=== PATIENT | male | born 1950 | race Caucasian/White ===

== ENCOUNTER 2017-03-14 20:30 | Emergency (ER) | payer OTHER ==
[2017-03-14 20:34] VITALS: BP 127/76; PULSE 77; TEMP 98.1; BMI 24.4
--- NOTE | 2017-03-14 21:14 | PDOC ---
History of Present Illness - General History Source: Patient Exam Limitations: No Limitations - History of Present Illness Initial Comments: 03/14/17 21:38 A portion of this note was documented by scribe services under my direction. I have reviewed the details of the note, within reason, and agree with the documentation. The case summary and management plan written by me. Assessment and plan: This is a 66-year-old male with foreign body under his ring and elevate his right right fifth finger. Foreign body was removed without difficulty after doing a digital block. <Alison Gilliam I - Last Filed: 03/14/17 21:39> - General History Source: Patient Exam Limitations: No Limitations - History of Present Illness Initial Comments: 03/14/17 21:30 The patient is a 66 year old male with a significant past medical history of colon cancer, who presents to the ED with a splinter in the right hand pinky. Patient states he was in his backyard when he hand scraped against the wooden fence. He denies any pain but witnessed a small wood piece inside the pinky. Patient is otherwise healthy and has no other complaints. Patient is right-hand dominant. Patient has not had a tetanus shot in over ten years. PAST MEDICAL HISTORY: Colon CA PAST SURGICAL HISTORY: no significant history FAMILY HISTORY: no pertinent history SOCIAL HISTORY: Pt lives with family and is employed. MEDICATIONS: reviewed ALLERGIES: As per nursing notes ROS General: No fevers or chills, no weakness, no weight loss HEENT: No change in vision. No sore throat,. No ear pain CardioVascular: No chest pain or shortness of breath Respiratory:No cough, or wheezing. Gastrointestinal: no nausea, vomiting, diarrhea or constipation, No rectal bleeding Genitourinary: No dysuria, hematuria, or frequency Musculoskeletal: No joint or muscle pain or swelling Neurologic: No headache, vertigo, dizziness or loss of consciousness Psychiatric: nor depression Skin: + wood splinter in the right hand pinky. Endocrine: no increased thirst or abnormal weight change Allergic: no skin or latex allergy All other systems reviewed and normal PE GENERAL: The patient is awake, alert, and fully oriented, in no acute distress. HEAD: Normal with no signs of trauma. EYES: Pupils equal, round and reactive to light, extraocular movements intact, sclera anicteric, conjunctiva clear. EXTREMITIES: Foreign body under the 5th digit of the right hand. Normal range of motion, no edema. NEUROLOGICAL: Normal speech, normal gait. PSYCH: Normal mood, normal affect. SKIN: Warm, Dry, normal turgor. 03/14/17 21:32 Procedure note: foreign body removal of the right fifth finger. finger was cleaned with alcohol and anesthetized with ring block no epinephrine. total of 5cc. Finger nail was incised with scissors the length of the splinter and splinter was removed without difficulty. Bacitracin and wrapped finger. <Wero Ba - Last Filed: 03/14/17 21:49> - General Chief Complaint: Foreign Body (FB) Stated Complaint: RIGHT 5TH FINGER SPLINTER Time Seen by Provider: 03/14/17 20:34 Past History - Past Medical History Cancer: Yes (COLON CA) - Psycho/Social/Smoking Cessation Hx Suicidal Ideation: No Smoking History: Current every day smoker Have you smoked in the past 12 months: Yes Number of Cigarettes Smoked Daily: 20 Information on smoking cessation initiated: Yes 'Breaking Loose' booklet given: 03/14/17 Hx Alcohol Use: (weekly) <Alison Gilliam I - Last Filed: 03/14/17 21:39> <Wero Ba - Last Filed: 03/14/17 21:49> - Past Medical History Allergies/Adverse Reactions: Allergies Allergy/AdvReac Type Severity Reaction Status Date / Time prednisone Allergy Verified 03/14/17 20:31 Home Medications: Ambulatory Orders NK [No Known Home Medication] 03/14/17 *Physical Exam - Vital Signs Last Vital Signs Temp Pulse Resp BP Pulse Ox 98.1 F 77 18 127/76 96 03/14/17 20:30 03/14/17 20:30 03/14/17 20:30 03/14/17 20:30 03/14/17 20:30 <Alison Gilliam I - Last Filed: 03/14/17 21:39> - Vital Signs Last Vital Signs Temp Pulse Resp BP Pulse Ox 98.1 F 77 18 127/76 96 03/14/17 20:30 03/14/17 20:30 03/14/17 20:30 03/14/17 20:30 03/14/17 20:30 <Wero Ba - Last Filed: 03/14/17 21:49> *DC/Admit/Observation/Transfer - Discharge Dispostion Admit: No <Alison Gilliam I - Last Filed: 03/14/17 21:39> - Attestations Scribe Attestion: 03/14/17 21:37 Documentation prepared by Wero Ba, acting as biomedical manager for Alison Gilliam MD. <Wero Ba - Last Filed: 03/14/17 21:49> Diagnosis at time of Disposition: Foreign body of finger - Discharge Dispostion Disposition: HOME Condition at time of disposition: Stable - Patient Instructions Additional Instructions: Apply a little bacitracin and cover with a Band-Aid until the nail that has scabbed over. You can use a fingernail file to file the edges of the area where the nail was cut if it is catching on things and bothering you. Return to the emergency department immediately with ANY new, persistent or worsening symptoms. Continue any medications as previously prescribed by your physician. You should follow up with your primary doctor . Please make sure your doctor reviews the results of your emergency evaluation. Thank you for coming to the Emergency Department today for your care. It was a pleasure to see you today. Please note that your evaluation is INCOMPLETE until you follow-up with your doctor.
[2017-03-14] MEDS ORDERED: DIPHTH,PERTUSS(ACELL),TET 0.5 ML DISP.SYRIN IM ONE (21:33)
== END 2017-03-14 21:46 | disposition home or self-care (01) ==
LOC: FER 20:30
PROC: 0HCFXZZ Extirpation of Matter from Right Hand Skin, External Approach (ICD-10-PCS; principal; 2017-03-14)
PROC: 3E0234Z Introduction of Serum, Toxoid and Vaccine into Muscle, Percutaneous Approach (ICD-10-PCS; 2017-03-14)
DX: S60.456A Superficial foreign body of right little finger, initial encounter (principal); W22.01XA Walked into wall, initial encounter; Y93.89 Activity, other specified; Y92.007 Garden or yard of unspecified non-institutional (private) residence as the place of occurrence of the external cause; F17.210 Nicotine dependence, cigarettes, uncomplicated; Z85.038 Personal history of other malignant neoplasm of large intestine
CPT/HCPCS: 90715; 99281-25